=== PATIENT | male | born 1945 | race Hispanic/Latino ===

== ENCOUNTER → 2025-01-09 | Outpatient (CLI) | payer OTHER ==
--- NOTE | 2025-01-10 08:05 | HMCIMG ---
EXAMINATION: ULTRASOUND OF THE ABDOMEN (LIMITED) WITH COLOR DOPPLER. CLINICAL HISTORY: Upper abdomen pain. COMPARISON: None. TECHNIQUE: Real-time grayscale ultrasound images of the abdomen. In addition, color Doppler is medically necessary to perform in order to evaluate vascularity and blood flow. FINDINGS: Liver: Bulky in caliber, the right hepatic lobe measures 16.1 cm in the craniocaudal dimension. There is increased echogenicity of the hepatic parenchyma. There is no focal hepatic abnormality or intrahepatic biliary ductal dilatation. There is normal spectral Doppler of the main portal vein. Gallbladder: Within normal limits with normal wall thickness (0.30 cm). No hyperemia or pericholecystic free fluid. There is no cholelithiasis. Common bile duct is normal in caliber, measuring 0.35 cm. Spleen is normal in caliber and measures 9.1 x 2.4 x 2.8 cm in craniocaudal, AP and transverse dimensions respectively. No focal lesions. Pancreas: Head and body appear normal in caliber and echotexture. No calcification or dilated pancreatic duct. Tail is obscured by overlying bowel gas. The kidneys are normal in caliber, the right kidney measures 9.8 x 3.3 x 4.9 cm and the left kidney measures 10.5 x 5.2 x 4.9 cm in craniocaudal, AP, and transverse dimensions respectively. There is normal renal cortical thickness, and cortical echogenicity. There is no renal calculus or hydronephrosis. There are simple cortical cysts that measure 1.7 x 1.4 x 1.9 cm in the mid pole and 2.8 x 1.8 x 2.2 cm in the upper pole of the left kidney. The mid abdominal aorta is dilated, measures 3.1 cm with velocity of 44 cm/s. The proximal and distal aorta are obscured by overlying bowel gas. Visualized aspects of the inferior vena cava are unremarkable. IMPRESSION: Hepatomegaly with hepatic steatosis. Left renal simple cortical cysts. Dilated mid abdominal aorta. Recommend CT abdomen and pelvis with contrast. /[place]
== END | disposition home or self-care (01) ==
LOC: RAH 09:11
PROVIDERS: ATTEND Internal Medicine Gastroenterology
DX: N28.1 Cyst of kidney, acquired (principal); R10.10 Upper abdominal pain, unspecified; R14.0 Abdominal distension (gaseous); R16.0 Hepatomegaly, not elsewhere classified; K76.0 Fatty (change of) liver, not elsewhere classified
CPT/HCPCS: 76700

== ENCOUNTER → 2025-02-07 | Outpatient (CLI) | payer OTHER ==
[~2025-02-07] MED LIST: IOHEXOL 350 MG/ML 100ML INFUS..BTL IV ONE
--- NOTE | 2025-02-07 12:51 | HMCIMG ---
CT ABDOMEN/PELVIS W/WO INTRAVENOUS CONTRAST AND ORAL CONTRAST. REASON: UPPER ABD PAIN, UNSPEC COMPARISON: None. FINDINGS: Lung bases are clear. There is coronary calcification suggesting of coronary disease. There are no focal liver lesions. There are normal-appearing kidneys.. There are multiple cortical simple cysts seen mostly in left kidney.. Spleen and pancreas appear unremarkable. The gallbladder appears normal as well. Small and large bowels are well-opacified with oral contrast. Bowel loops appear unremarkable. There are scattered diverticulosis mostly in this descending and sigmoid colon with no evidence of diverticulitis. This includes normal appearance of the appendix There is no evidence of free fluid or intraperitoneal air. There are no focal fluid collections. There is atherosclerotic change abdominal aorta and iliac vessels with calcified plaque. The retroperitoneum appear normal as do pelvic soft tissue structures. The anterior abdominal wall is intact. Osseous structures demonstrate severe osteoarthropathy of both hips more pronounced on the left as compared to the right.. There is mild prostatomegaly with no evidence of mass or calcification seen. IMPRESSION: 1. No acute process in the CT of the abdomen and pelvis with and without intravenous contrast and oral contrast 2. Coronary calcification suggesting of coronary artery disease 3. Scattered diverticulosis mostly in the descending and sigmoid colon with no evidence of diverticulitis 4. Severe osteoarthropathy of both hip joints more pronounced on the left. 5. Mild prostatomegaly would recommend correlation with PSA and would consider transrectal prostate sonogram. CT was performed with one or more following dose reduction techniques: automated exposure control, adjustment of the mA and kv according to patient's size, or use of a iterative reconstruction technique.
== END | disposition home or self-care (01) ==
LOC: RAH 07:35
PROVIDERS: ATTEND Internal Medicine Gastroenterology
DX: K57.30 Diverticulosis of large intestine without perforation or abscess without bleeding (principal); N40.0 Benign prostatic hyperplasia without lower urinary tract symptoms; N28.1 Cyst of kidney, acquired; M89.48 Other hypertrophic osteoarthropathy, other site; I25.10 Atherosclerotic heart disease of native coronary artery without angina pectoris; R10.10 Upper abdominal pain, unspecified; I77.811 Abdominal aortic ectasia
CPT/HCPCS: 74178; Q9967